=== PATIENT | male | born 2005 | race African-American/Black ===

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

== ENCOUNTER 2023-04-19 16:22 | Emergency (ER) | payer OTHER, SELFPAY ==
--- NOTE | ~2023-04-19 | XR_ITS ---
EXAMINATION: XR chest 2V Exam Date/Time: 04/19/2023 18:00 GAMEPLAY PROGRAMMER HISTORY: SOB, CP, HX OF ASTHMA Comparison: 01/27/2021. RESULT: Lines, tubes, and devices: None. Lungs and pleura: Clear. Cardiomediastinal silhouette: Stable. Other: No acute osseous or upper abdominal finding. IMPRESSION: No acute cardiopulmonary process. Reviewed, dictated and finalized at location K. PLAY PROGRAMMER
[2023-04-19 16:31] VITALS: BP 122/73; PULSE 54; RESP 18; TEMP 37.1; O2SAT 100
--- NOTE | 2023-04-19 17:48 | ED.URI ---
HPI - URI/Sore Throat General Chief Complaint: Upper Respiratory Infection Stated Complaint: Shortness of Breath Time Seen by Provider: 04/19/23 17:45 Source: patient, family, RN notes reviewed and old records reviewed Mode of arrival: ambulatory Limitations: no limitations History of Present Illness HPI Narrative: 17-year-old male who presents to [facility] with complaints of having headache, decreased appetite, fevers, feeling sluggish since Monday. Patient does have history of asthma with some shortness of breath reported with no acute cough verbalized or noted, has not used his inhaler or taken any OTC medications for his symptoms except Tylenol.Patient reports that he has some generalized body aches. MD elicited complaint: fever, cough and other (headache, shortness of breath) Pertinent past history: asthma Onset (ago): day(s) (3) Severity: moderate Able to tolerate fluids by mouth: Yes Treatments prior to arrival: acetaminophen Related Data Allergies Allergy/AdvReac Type Severity Reaction Status Date / Time amoxicillin Allergy Mild Rash Verified 12/09/21 16:30 Review of Systems Review of Systems: CONSTITUTIONAL:Reports malaise, chills, sweats, or fever. EYES: Denies visual changes, redness, or discharge. ENT: Reports rhinorrhea, congestion,no sinus pain,no otalgia and no sore throat. CARDIOVASCULAR: Denies chest pain, palpitations, or edema. RESPIRATORY: Reports cough.? Reports some dyspnea. GASTROINTESTINAL: Denies abdominal pain, nausea, vomiting, diarrhea SKIN: Denies rash or itching. MUSCULOSKELETAL: Reports myalgia. NEUROLOGIC: Reports headache. All systems reviewed & are unremarkable except as noted in HPI and below PMFSH Past Medical History Medical History (Updated 04/22/23 @ 12:47 by Joanna Mcallister NP) Asthma Bronchitis Fracture of right wrist Left knee injury Surgical History Surgical History (Updated 12/10/21 @ 16:06 by Joanna Mcallister NP) H/O inguinal hernia repair as infant Family History Family History Other No acute medical problems Social History Social History (Updated 12/10/21 @ 16:07 by Joanna Mcallister NP) Smoking status: Never smoker Alcohol intake: never Substance use type: does not use Living arrangements: with family Occupation/Education: student Gender identity (if verbalized by the patient): Male Comments At time of signature, agree with nursing past medical, surgical, social and family history. There is no relevant family history pertinent to the presenting complaint Exam Narrative: GENERAL: Well-appearing, well-nourished, and in no acute distress. HEAD: Normocephalic EYES: PERRLA, conjunctivae clear ENT: Nares clear, turbinates edematous and erythematous, clear discharge. Mucous membranes moist. TM pearly knowles with dull light reflex bilaterally; no tragal tenderness. Oropharynx erythematous without lesions. Tonsils not enlarged and without exudate, no drooling, no hoarseness, no trismus, uvula midline.post nasal drainage NECK: Supple. No lymphadenopathy CHEST: Decreased to auscultation, breath sounds equal. No wheezing, rhonchi, rales, or stridor. No respiratory distress, speaks in full sentences.reports feels some shortness of breath, able to speak in full sentences,no tachypnea or any retractions noted, SAO2 100% on room air HEART: Regular rate and rhythm. No murmur heard. SKIN: Warm, dry, no rash. NEURO: Alert and oriented x3. PSYCH: Normal mood and affect Course Course Emergency Course: Patient is aware of diagnosis, understands and agrees to treatment plan.? Anticipatory guidance given.? Patient agrees to follow-up as directed and is aware of reasons to seek care at the emergency department. Portions of this record may have been created with voice recognition software Level of Care: [facility] Visit Vital Signs Vital signs: Vital Sign
== END 2023-04-19 18:39 | disposition home or self-care (01) ==
PROVIDERS: Emergency Provider Registered Nurse
DX: J06.9 Acute upper respiratory infection, unspecified (principal); R05.9 Cough, unspecified; Z20.822 Contact with and (suspected) exposure to COVID-19; J45.909 Unspecified asthma, uncomplicated
CPT/HCPCS: 71046; 87426; 87804; 99213; C9803; G0463

== ENCOUNTER 2023-05-26 08:30 | Emergency (ER) | payer OTHER, SELFPAY ==
[2023-05-26 08:37] VITALS: BP 126/72; PULSE 97; RESP 16; TEMP 37.3; O2SAT 100
--- NOTE | 2023-05-26 09:18 | ED.URI ---
HPI - URI/Sore Throat General Chief Complaint: Upper Respiratory Infection Stated Complaint: cough/chest tight/nausea Time Seen by Provider: 05/26/23 09:18 Source: patient, RN notes reviewed and old records reviewed Mode of arrival: ambulatory Limitations: no limitations History of Present Illness HPI Narrative: 17 year old male who presents to [facility] with complaints of cough,chest tightness and nausea with vomiting since the , total of 4 day duration. Patient reports that he he has not been able to keep food down and he had fever up to 102F yesterday. Patient has history of asthma states last used his inhaler yesterday. Patient reports some cough dry, SAO2 100% on room air no tachypnea noted or any accessory muscle use. MD elicited complaint: fever, cough (chest tightness) and other (nausea and vomiting) Pertinent past history: asthma Onset (ago): day(s) (4) Able to tolerate fluids by mouth: Yes Associated symptoms: nausea and vomiting Treatments prior to arrival: other (inhaler) Related Data Allergies Allergy/AdvReac Type Severity Reaction Status Date / Time amoxicillin Allergy Mild Rash Verified 05/26/23 08:45 Review of Systems Review of Systems: CONSTITUTIONAL: Reports malaise, chills, sweats, or fever. EYES: Denies visual changes, redness, or discharge. ENT: Reports rhinorrhea, congestion,no sinus pain,no otalgia and positive for sore throat. CARDIOVASCULAR: Denies chest pain, palpitations, or edema. RESPIRATORY: Reports cough.? Denies dyspnea.states some tightness of chest with his breathing at times GASTROINTESTINAL: Denies abdominal pain, positive for nausea, vomiting, no diarrhea SKIN: Denies rash or itching. MUSCULOSKELETAL: Denies myalgia. NEUROLOGIC: Positive for headache. All systems reviewed & are unremarkable except as noted in HPI and below PMFSH Past Medical History Medical History Asthma Bronchitis Fracture of right wrist Left knee injury Surgical History Surgical History H/O inguinal hernia repair as infant Family History Family History Father Hypertension Heart disease Mother Hypertension Heart disease Depression Anxiety Other No acute medical problems Social History Social History Smoking status: Never smoker Alcohol intake: never Substance use type: does not use Do You Feel Safe in your Home?: Yes Lack of Transportation: No Lack of Food: Never True Current Housing: I Have Housing Concerned About Future Housing: No Difficulty Paying Gas/Electric Bills: No Difficulty Paying for Meds: No Currently Unemployed: No Education: High School Diploma/GED Difficulty w/ Childcare or Family Care: No Living arrangements: with family Occupation/Education: student Gender identity (if verbalized by the patient): Male Comments At time of signature, agree with nursing past medical, surgical, social and family history. There is no relevant family history pertinent to the presenting complaint Exam Narrative: GENERAL: Well-appearing, well-nourished, and in no acute distress. HEAD: Normocephalic EYES: PERRLA, conjunctivae clear ENT: Nares clear, turbinates edematous and erythematous, clear discharge. Mucous membranes moist. TM pearly knowles with dull light reflex bilaterally; no tragal tenderness. Oropharynx erythematous without lesions. Tonsils red mildly enlarged and without exudate, no drooling, no hoarseness, no trismus, uvula midline. NECK: Supple. No lymphadenopathy CHEST: Clear to auscultation, breath sounds equal. No wheezing, rhonchi, rales, or stridor. No respiratory distress, speaks in full sentences.dry cough,SAO2 100% on room air HEART: Regular rate and rhythm. No murmur heard. SKIN: Warm, dry,
== END 2023-05-26 09:56 | disposition home or self-care (01) ==
PROVIDERS: Emergency Provider Registered Nurse
DX: R11.2 Nausea with vomiting, unspecified (principal); R05.9 Cough, unspecified; B34.9 Viral infection, unspecified; Z20.822 Contact with and (suspected) exposure to COVID-19; J45.909 Unspecified asthma, uncomplicated
CPT/HCPCS: 87081; 87426; 87804; 87880; 99213; G0463

== ENCOUNTER 2024-08-03 15:55 | Emergency (ER) | payer OTHER, SELFPAY ==
[2024-08-03 16:08] VITALS: BP 127/86; PULSE 121; RESP 18; TEMP 37.2; O2SAT 100
[2024-08-03 16:14] VITALS: PULSE 64
--- NOTE | 2024-08-03 16:19 | ED.URI ---
HPI - URI/Sore Throat General Chief Complaint: Upper Respiratory Infection Stated Complaint: Sore Throat Time Seen by Provider: 08/03/24 16:09 Source: patient and RN notes reviewed Mode of arrival: ambulatory Limitations: no limitations History of Present Illness HPI Narrative: Patient presents today complaining of a 2 week history of sore throat and rhinorrhea. Reports subjective fever at onset but this has since resolved. Denies additional URI symptoms to include cough or nasal congestion, shortness of breath or difficulty swallowing. He has not tried any [id number] medication for symptoms prior to arrival and currently rates his pain 2/10. He is also complaining of urethral discomfort for the past 2 weeks but denies any urethral discharge, testicular pain or swelling, or any additional urinary symptoms to include hematuria or dysuria. Related Data Home Medications ?Medication ?Instructions ?Recorded ?Confirmed ?Last Taken ?Type No Home Medications 08/03/24 08/03/24 Unknown History Allergies Allergy/AdvReac Type Severity Reaction Status Date / Time amoxicillin Allergy Mild Rash Verified 08/03/24 16:12 Review of Systems Review of Systems: CONSTITUTIONAL: Denies body aches, fever, chills, or sweats. EYES: Denies visual changes, redness, or discharge. ENT: Denies congestion, or otalgia.+ sore throat, rhinorrhea CARDIOVASCULAR: Denies chest pain, palpitations, or edema. RESPIRATORY: Denies cough or dyspnea. GASTROINTESTINAL: Denies abdominal pain, nausea, vomiting, or diarrhea. GENITOURINARY: Urethral discomfort SKIN: Denies rash, itching, or wounds. MUSCULOSKELETAL: Denies back pain, joint pain, or myalgia. NEUROLOGIC: Denies headache, numbness, tingling, or weakness. PSYCH: Denies depression or anxiety. [facility] Past Medical History Medical History Left knee injury Fracture of right wrist Bronchitis Asthma Surgical History Surgical History H/O inguinal hernia repair as infant Family History Family History Father Hypertension Heart disease Mother Hypertension Heart disease Depression Anxiety Other No acute medical problems Social History Social History Smoking status: Never smoker Alcohol intake: never Substance use type: does not use Do You Feel Safe in your Home?: Yes Lack of Transportation: No Lack of Food: Never True Current Housing: I Have Housing Concerned About Future Housing: No Difficulty Paying Gas/Electric Bills: No Difficulty Paying for Meds: No Currently Unemployed: No Education: High School Diploma/GED Difficulty w/ Childcare or Family Care: No Living arrangements: with family Occupation/Education: student Gender identity (if verbalized by the patient): Male Comments At time of signature, I have reviewed and agree with nursing past medical, surgical, social and family history unless otherwise noted. Please see nursing chart for further information. There is no relevant family history pertinent to the presenting complaint Exam Narrative: GENERAL: Well-appearing, well-nourished, and in no acute distress. HEAD: Normocephalic, atraumatic. EYES: EOMI. No redness or drainage. Conjunctivae normal. ENT: Mucous membranes pink and moist. Nares clear. No rhinorrhea. TMs normal bilaterally. Throat very mildly erythematous without edema or exudate. Uvula midline. NECK: Normal AROM. Supple. No lymphadenopathy. CHEST: No respiratory distress. Clear to auscultation. HEART: Regular rate and rhythm. No murmur appreciated. : Penis appears normal. Circumcised. Meatus appears normal without irritation or discharge. EXTREMITIES: Normal range of motion. No edema. SKIN: Warm, dry, no rash. Capillary refill normal. Normal skin turgor. NEURO: No focal deficits. Alert and oriented x3. Gait steady. PSYCH: Normal affect. No signs of depression or anxiety. Course Course Level of Care: Express Care Visit Vital Signs Vital signs: Vital Signs Temperature 98.9 F 08/03/24 16:08 Pulse Rate 121 H 08/03/24 16:08 Respiratory Rate 18 08/03/24 16:08 Blood Pressure 127/86 08/03/24 16:08 Pulse Oximetry 100 08/03/24 16:08 Oxygen Delivery Room Air 08/03/24 16:08 Temperature 98.9 F 08/03/24 16:08 Pulse Rate 64 08/03/24 16:14 Respiratory Rate 18 08/03/24 16:08 Blood Pressure 127/86 08/03/24 16:08 Pulse Oximetry 100 08/03/24 16:08 Oxygen Delivery Room Air 08/03/24 16:08 Reviewed MDM - URI/Sore Throat MDM Narrative Medical decision making narrative: Rapid strep negative. Urinalysis is negative. Symptoms are likely unrelated. Recommend patient start an antihistamine to determine whether not he is having some allergy symptoms contributing to his sore throat. Recommend patient follow-up with his PCP regarding his urethral discomfort. He denies that he is concerned about any sexually transmitted infections as he has been celibate for the last couple of years, but wishes for his urine to be sent for STI testing anyway. Differential Diagnosis Differential diagnosis: Likely upper respiratory infection, otitis media, sinusitis, viral infection, pharyngitis and other (Strep throat) Lab Data Attestation: I reviewed the patient's lab results. Labs: Lab Results 08/03/24 Range/Units 16:25 POC Urine Color Light/pale POC Urine Clarity Clear POC Urine pH 6.0 POC Ur Specif [place] 1.010 POC Urine Protein Negative (Negative) POC Ur Glucose (UA) Negative (Negative) POC Urine Ketones Negative (Negative) POC Urine Blood Negative (Negative) POC Urine Nitrite Negative (Negative) POC Urine Bilirubin Negative (Negative) POC Urine Urobilinogen 0.2 POC U Leukocyte Esteras Negative (Negative) POC Grp A Strep Screen Negative (Negative) Critical Care Time Critical Care Time Critical Care Time: No Discharge Plan Discharge Clinical Impression: Sore throat, Dysuria Patient Disposition: Home, Self-Care Condition: Stable Additional Instructions: Your rapid strep screen is negative. You start an allergy medications such as Zyrtec, Claritin, or Mayelin to determine whether not this will be helpful with your symptoms. Please follow-up with a PCP in 1 week if symptoms persist. You may also take some Tylenol or ibuprofen to help with your discomfort. Your urine has been sent for gonorrhea, chlamydia, and Trichomonas testing. Test should be back within the next 24 hours and you will be notified of any positive results by telephone. If your positive, appropriate antibiotics will be called in for you at that time. If tests are negative, please follow-up with a PCP for further evaluation of your symptoms. The physician liaison number at [facility] to help you find a PCP is [phone]. Your blood pressure was elevated above 120/80 today at Urgent Care. This puts you above the threshold for follow up. Please schedule a followup visit with your personal physician as soon as possible, for further evaluation and treatment. Even blood pressure exceeding 120/80 may indicate pre-hypertension. Patient Language: Turkmen Prescriptions: No Action No Home Medications Follow-up/Referrals: PHYSICIAN,PAINTER SET [Primary Care Provider] - Time of Disposition: 16:44
[2024-08-03 16:27] LABS: EDSTREPNEGPOS1 Negative (Negative); EDUAAPPEAR Clear; EDUABILI Negative (Negative); EDUABLOOD Negative (Negative); EDUACOLOR1 Light/Pale; EDUAGLUCOSE Negative (Negative); EDUAKETONE Negative (Negative); EDUALEUKO Negative (Negative); EDUANITRATE Negative (Negative); EDUAPROTEIN Negative (Negative); EDUAUROBILI 0.2
[2024-08-03 20:09] LABS: Trichomonas Vag PCR NOT DETECTED (NOT DETECTE)
[2024-08-03 20:32] LABS: Chlamydia trachomatis NOT DETECTED (NOT DETECTE); Neisseria gonorrhoeae PCR NOT DETECTED (NOT DETECTE)
== END 2024-08-03 16:50 | disposition home or self-care (01) ==
PROVIDERS: Emergency Provider Nurse Practitioner
DX: J02.9 Acute pharyngitis, unspecified (principal); R30.0 Dysuria; Z11.3 Encounter for screening for infections with a predominantly sexual mode of transmission; J45.909 Unspecified asthma, uncomplicated
CPT/HCPCS: 81003; 87491; 87591; 87661; 87880; 99212; 99213; G0463

== ENCOUNTER 2024-10-18 11:43 | Emergency (ER) | payer OTHER, SELFPAY ==
[2024-10-18 11:47] VITALS: BP 111/65; PULSE 96; RESP 18; TEMP 38.1; O2SAT 100
--- NOTE | 2024-10-18 11:59 | ED.URI ---
HPI - URI/Sore Throat General Chief Complaint: Upper Respiratory Infection Stated Complaint: Fever/Chills Time Seen by Provider: 10/18/24 11:52 Source: patient and RN notes reviewed Mode of arrival: ambulatory Limitations: no limitations History of Present Illness HPI Narrative: Patient presents today complaining of sore throat, subjective fever, chills, body aches. Symptoms began last night. Currently rates his pain 8/10 and has been taking Tylenol without relief. Reports father and brother have both been ill at home with similar symptoms. Related Data Home Medications ?Medication ?Instructions ?Recorded ?Confirmed ?Last Taken ?Type No Home Medications 08/03/24 10/18/24 Unknown History Allergies Allergy/AdvReac Type Severity Reaction Status Date / Time amoxicillin Allergy Mild Rash Verified 10/18/24 11:54 Review of Systems Review of Systems: CONSTITUTIONAL: + chills, subjective fever, body aches EYES: Denies visual changes, redness, or discharge. ENT: Denies rhinorrhea, congestion, or otalgia.+ sore throat CARDIOVASCULAR: Denies chest pain, palpitations, or edema. RESPIRATORY: Denies cough or dyspnea. GASTROINTESTINAL: Denies abdominal pain, nausea, vomiting, or diarrhea. GENITOURINARY: Denies dysuria or hematuria. SKIN: Denies rash, itching, or wounds. MUSCULOSKELETAL: Denies back pain, joint pain, or myalgia. NEUROLOGIC: Denies headache, numbness, tingling, or weakness. PSYCH: Denies depression or anxiety. [facility] Past Medical History Medical History Left knee injury Fracture of right wrist Bronchitis Asthma Surgical History Surgical History H/O inguinal hernia repair as infant Family History Family History Father Hypertension Heart disease Mother Hypertension Heart disease Depression Anxiety Other No acute medical problems Social History Social History Smoking status: Never smoker Alcohol intake: never Substance use type: does not use Do You Feel Safe in your Home?: Yes Lack of Transportation: No Lack of Food: Never True Current Housing: I Have Housing Concerned About Future Housing: No Difficulty Paying Gas/Electric Bills: No Difficulty Paying for Meds: No Currently Unemployed: No Education: High School Diploma/GED Difficulty w/ Childcare or Family Care: No Living arrangements: with family Occupation/Education: student Gender identity (if verbalized by the patient): Male Comments At time of signature, I have reviewed and agree with nursing past medical, surgical, social and family history unless otherwise noted. Please see nursing chart for further information. There is no relevant family history pertinent to the presenting complaint Exam Narrative: GENERAL: Well-appearing, well-nourished, and in no acute distress. HEAD: Normocephalic, atraumatic. EYES: EOMI. No redness or drainage. Conjunctivae normal. ENT: Mucous membranes pink and moist. Nares clear. No rhinorrhea. TMs normal bilaterally. Throat mildly erythematous without edema or exudate. Uvula midline. NECK: Normal AROM. Supple. No lymphadenopathy. CHEST: No respiratory distress. Clear to auscultation. HEART: Regular rate and rhythm. No murmur appreciated. EXTREMITIES: Normal range of motion. No edema. SKIN: Warm, dry, no rash. Capillary refill normal. Normal skin turgor. NEURO: No focal deficits. Alert and oriented x3. Gait steady. PSYCH: Normal affect. No signs of depression or anxiety. Course Course Level of Care: Express Care Visit Vital Signs Vital signs: Vital Signs Temperature 100.6 F H 10/18/24 11:47 Pulse Rate 96 10/18/24 11:47 Respiratory Rate 18 10/18/24 11:47 Blood Pressure 111/65 10/18/24 11:47 Pulse Oximetry 100 10/18/24 11:47 Oxygen Delivery Room Air 10/18/24 11:47 Temperature 100.6 F H 10/18/24 11:47 Pulse Rate 96 10/18/24 11:47 Respiratory Rate 18 10/18/24 11:47 Blood Pressure 111/65 10/18/24 11:47 Pulse Oximetry 100 10/18/24 11:47 Oxygen Delivery Room Air 10/18/24 11:47 Reviewed MDM - URI/Sore Throat MDM Narrative Medical decision making narrative: Rapid strep negative. Culture pending. Symptoms likely viral in etiology. Discussed [id number] medication use and duration of illness. No prescription medications indicated at this time. Anticipatory guidance given. Differential Diagnosis Differential diagnosis: Likely upper respiratory infection, viral infection, pharyngitis and other (Strep throat) Lab Data Attestation: I reviewed the patient's lab results. Lab results narrative: Rapid strep negative Critical Care Time Critical Care Time Critical Care Time: No Discharge Plan Discharge Clinical Impression: Pharyngitis Qualifiers: Pharyngitis/tonsillitis etiology: unspecified etiology Qualified Code(s): J02.9 - Acute pharyngitis, unspecified Patient Disposition: Home Condition: Stable Instructions: Pharyngitis (ED) Additional Instructions: Your rapid strep swab was negative today at [facility]. You will be notified in a few days if the culture comes back positive for strep, and appropriate antibiotics will be called in for you at that time. Your symptoms are likely due to a viral illness, which is not treated with antibiotics. Viral symptoms can be present for up to 7-10 days. Take Tylenol or ibuprofen for fever or pain. Rest and stay hydrated. Follow up with your PCP in 7-10 days if symptoms are not improving. Go to the ER immediately if you have any difficulty breathing or swallowing. Patient Language: Portuguese Prescriptions: No Action No Home Medications Follow-up/Referrals: PHYSICIAN,ROOM SERVICE SUPERVISOR [Primary Care Provider] - Stand Alone Forms: Work/School Release IP Time of Disposition: 12:02
[2024-10-18 12:01] LABS: EDSTREPNEGPOS1 Negative (Negative)
== END 2024-10-18 12:09 | disposition home or self-care (01) ==
PROVIDERS: Emergency Provider Nurse Practitioner
DX: J02.9 Acute pharyngitis, unspecified (principal); J45.909 Unspecified asthma, uncomplicated
CPT/HCPCS: 87081; 87880; 99213; G0463

== ENCOUNTER 2024-10-23 14:51 | Emergency (ER) | payer OTHER, SELFPAY ==
[2024-10-23 14:55] VITALS: BP 114/81; PULSE 74; RESP 16; TEMP 36.1; O2SAT 100
--- NOTE | 2024-10-23 15:10 | ED.URI ---
HPI - URI/Sore Throat General Chief Complaint: Fever Stated Complaint: Fever Time Seen by Provider: 10/23/24 15:03 Source: patient and RN notes reviewed Mode of arrival: ambulatory Limitations: no limitations History of Present Illness HPI Narrative: Patient presents today complaining of a 5 day history of upper respiratory symptoms to include headache, cough, sore throat, nasal congestion. He has been taking ibuprofen and Benadryl with intermittent relief. He was seen here at [facility] on 10/18/2024 and diagnosed with an upper respiratory infection after a negative rapid strep test. His subsequent culture was negative. States symptoms are worse at night and persist, and he wanted to come in today for further evaluation. He denies any worsening symptoms, shortness of breath, chest pain. Related Data Home Medications ?Medication ?Instructions ?Recorded ?Confirmed ?Last Taken ?Type No Home Medications 08/03/24 10/18/24 Unknown History Allergies Allergy/AdvReac Type Severity Reaction Status Date / Time amoxicillin Allergy Mild Rash Verified 10/18/24 11:54 Review of Systems Review of Systems: CONSTITUTIONAL: Denies body aches, fever, chills, or sweats. EYES: Denies visual changes, redness, or discharge. ENT: + sore throat, congestion, rhinorrhea. CARDIOVASCULAR: Denies chest pain, palpitations, or edema. RESPIRATORY: Denies dyspnea.+ cough GASTROINTESTINAL: Denies abdominal pain, nausea, vomiting, or diarrhea. GENITOURINARY: Denies dysuria or hematuria. SKIN: Denies rash, itching, or wounds. MUSCULOSKELETAL: Denies back pain, joint pain, or myalgia. NEUROLOGIC: Denies numbness, tingling, or weakness.+ headache PSYCH: Denies depression or anxiety. [facility] Past Medical History Medical History Left knee injury Fracture of right wrist Bronchitis Asthma Surgical History Surgical History H/O inguinal hernia repair as Family History Family History Father Hypertension Heart disease Mother Hypertension Heart disease Depression Anxiety Other No acute medical problems Social History Social History (Reviewed 10/23/24 @ 15:12 by Christiane Silverio, [facility], ) Smoking status: Never smoker Alcohol intake: never Substance use type: does not use Do You Feel Safe in your Home?: Yes Lack of Transportation: No Lack of Food: Never True Current Housing: I Have Housing Concerned About Future Housing: No Difficulty Paying Gas/Electric Bills: No Difficulty Paying for Meds: No Currently Unemployed: No Education: High School Diploma/GED Difficulty w/ Childcare or Family Care: No Living arrangements: with family Occupation/Education: student Gender identity (if verbalized by the patient): Male Comments At time of signature, I have reviewed and agree with nursing past medical, surgical, social and family history unless otherwise noted. Please see nursing chart for further information. There is no relevant family history pertinent to the presenting complaint Exam Narrative: GENERAL: Well-appearing, well-nourished, and in no acute distress. HEAD: Normocephalic, atraumatic. EYES: EOMI. No redness or drainage. Conjunctivae normal. ENT: Mucous membranes pink and moist. Nares mildly congested. No rhinorrhea. TMs normal bilaterally. Throat mildly erythematous without edema or exudate. Uvula midline. NECK: Normal AROM. Supple. No lymphadenopathy. CHEST: No respiratory distress. Clear to auscultation. HEART: Regular rate and rhythm. No murmur appreciated. EXTREMITIES: Normal range of motion. No edema. SKIN: Warm, dry, no rash. Capillary refill normal. Normal skin turgor. NEURO: No focal deficits. Alert and oriented x3. Gait steady. PSYCH: Normal affect. No signs of depression or anxiety. Course Course Level of Care: Express Care Visit Vital Signs Vital signs: Vital Signs Temperature 97 F L 10/23/24 14:55 Pulse Rate 74 10/23/24 14:55 Respiratory Rate 16 10/23/24 14:55 Blood Pressure 114/81 10/23/24 14:55 Pulse Oximetry 100 10/23/24 14:55 Oxygen Delivery Room Air 10/23/24 14:55 Temperature 97 F L 10/23/24 14:55 Pulse Rate 74 10/23/24 14:55 Respiratory Rate 16 10/23/24 14:55 Blood Pressure 114/81 10/23/24 14:55 Pulse Oximetry 100 06/18/25 14:55 Oxygen Delivery Room Air 10/23/24 14:55 Reviewed MDM - URI/Sore Throat MDM Narrative Medical decision making narrative: Patient continues to have viral upper respiratory symptoms. Reiterated appropriate [id number] medication that he could take for symptoms. Lung exam normal. No prescription medications or further testing indicated at this time. Anticipatory guidance given. Differential Diagnosis Differential diagnosis: Likely upper respiratory infection, otitis media, sinusitis, viral infection and pharyngitis Critical Care Time Critical Care Time Critical Care Time: No Discharge Plan Discharge Clinical Impression: Upper respiratory infection Qualifiers: URI type: unspecified URI Qualified Code(s): J06.9 - Acute upper respiratory infection, unspecified Patient Disposition: Home Condition: Stable Instructions: Upper Respiratory Infection (DC) Additional Instructions: Your symptoms are likely due to a viral illness, which is not treated with antibiotics. Virus symptoms can last for up to 7-10days. Take Tylenol and/or ibuprofen for pain or fever. You may consider Sudafed for your headache/nasal congestion. Rest and stay hydrated. Follow up with your PCP in 5-7 days if symptoms are not improving. Go to the ER immediately if you develop shortness of breath, difficulty swallowing, or any other concerning symptoms. Your blood pressure was elevated above 120/80 today at Urgent Care. This puts you above the threshold for follow up. Please schedule a followup visit with your personal physician as soon as possible, for further evaluation and treatment. Even blood pressure exceeding 120/80 may indicate pre-hypertension. Patient Language: Danish Prescriptions: No Action No Home Medications Follow-up/Referrals: PHYSICIAN,LINE LEAD [Primary Care Provider] - Stand Alone Forms: Work/School Release IP Time of Disposition: 15:16
== END 2024-10-23 15:22 | disposition home or self-care (01) ==
PROVIDERS: Emergency Provider Nurse Practitioner
DX: J06.9 Acute upper respiratory infection, unspecified (principal); J45.909 Unspecified asthma, uncomplicated
CPT/HCPCS: 99211; G0463